=== PATIENT | female | born 1985 | race Caucasian/White ===

== ENCOUNTER 2016-08-24 23:42 | Emergency (ER) | payer OTHER ==
[~2016-08-24] VITALS: Ht 170.2 cm; Wt 63.5 kg
[~2016-08-24 23:42] MED LIST: ALPRAZOLAM1 MG PO; AMOXICILLIN500 M3 PO; AMOXIL 875 MG875 MG PO; AUGMENTIN 500M500 MG PO; AUGMENTIN 875 M1 TAB PO; DICLOFENAC SODI75 M2 PO; DIFLUCAN150 MG PO; DIFLUCAN200 M1 PO; DOXYCYCLINE MO100 MG PO; GABAPENTIN300 MG PO; GUAIFENESIN-COD10 ML PO; HYDROCODONE/ACE1 TA1 PO; MEDROL4 M2 PO; NASONEX17 GM NASB; NORCO 325 MG-51 TAB PO; PENICILLIN V P500 M1 PO; PERCOCET 325 MG1 TA2 PO; PROAIR HFA8.5 GM INH; QUETIAPINE FUM100 MG PO; TYLENOL WITH C1 EACH PO; VICODIN 5-3001 EACH PO; ZITHROMAX250 M2 PO
[2016-08-25 00:02] VITALS: BP 123/72
[2016-08-25] MEDS ORDERED: METHADONE HCL10 M1 PO (00:04)
[2016-08-25 00:25] LABS: ABSOLUTE BASOPHIL COUNT 0.1 /CUMM (0.0-0.2); ABSOLUTE EOSINOPHIL COUNT 0 /CUMM (0.0-0.7); ABSOLUTE GRANULOCYTE CT 7.2 /CUMM (1.4-6.5); ABSOLUTE LYMPH COUNT 2.5 /CUMM (1.2-3.4); ABSOLUTE MONOCYTE COUNT 0.5 /CUMM (0.10-0.60); BASOPHIL % 0.5 % (0.0-2.0); EOSINOPHIL % 0 % (0-5); GRANULOCYTE % 70.2 % (42.2-75.2); HEMATOCRIT 37.9 % (37-47); MEAN CORPUSCULAR HGB 29.1 PG (27.0-31.0); MEAN CORPUSCULAR HGB CONC 33.6 G/DL (33.0-37.0); MEAN CORPUSCULAR VOLUME 86.7 FL (81.0-99.0); MEAN PLATELET VOLUME 8.9 FL (7.4-10.4); PLATELET COUNT 221 /CUMM (130-400); RBC DISTRIBUTION WIDTH 12.4 % (11.5-14.5); RED BLOOD CELL CT 4.37 /CUMM (4.20-5.40); WHITE BLOOD CELL COUNT 10.3 /CUMM (4.8-10.8)
== END 2016-08-25 02:08 | disposition admitted as inpatient to this hospital (09) ==
LOC: ERH 23:42
PROVIDERS: Physician Assistant Medical
DX: R10.30 Lower abdominal pain, unspecified (principal); K59.00 Constipation, unspecified
CPT/HCPCS: 81001; 81025; 99281

== ENCOUNTER 2017-07-17 19:26 | Emergency (ER) | payer OTHER ==
[~2017-07-17] VITALS: Ht 167.6 cm; Wt 61.2 kg
[~2017-07-17 19:26] MED LIST changes: +METHADONE HCL10 M1 PO; +NARCAN4 MG IN
--- NOTE | 2017-07-17 20:34 | ED INFLUENZA/URI COMPLAINT ---
History of Present Illness General Chief Complaint: Upper Respiratory Sx/Fever Stated Complaint: NEEDS BACTERIAL PNEUMONIA?? EVAL S/P FAMILY DX?? Source: patient, family Exam Limitations: no limitations Vital Signs & Intake/Output Vital Signs & Intake/Output Vital Signs Date Time Temp Pulse Resp B/P B/P Pulse O2 O2 Flow FiO2 Mean Ox Delivery Rate 07/17 2126 98.6 67 18 98/59 100 Room Air 07/18 1939 96.6 53 18 112/65 98 Room Air Allergies Coded Allergies: No Known Allergies (08/24/16) Triage Note: PT FROM HOME C/O DRY COUGH, SOB FOR THE PAST 5 DAYS. PT STATES HER SISTER GOT DX WITH BACTERIAL PNEUMONIA AND PT BELIEVES PT IS THE ONE WHO SPREAD IT. PT STATES "WHEN I BLOW MY NOSE ITS GREEN AND IM SOB SOMETIMES, I KNOW IM SICK." PTS 02 98% ONRA , AFEBRILE IN TRIAGE. PT HAS NO OTHER COMPLAINTS Triage Nurses Notes Reviewed? yes : No Patient currently breastfeeds: No HPI: 32F no PMH presenting with 5 days of sinus pressure with green sinus discharge, post-nasal drip symptoms, cough with thick yellow sputum, and chills. Her sister was recently diagnosed with bacterial pneumonia. She is an active 1 PPD smoker. She denies fever, headache, chest pain, palpitations, SOB, abdominal pain, diarrhea, dysuria. She is more fatigued lately and reports intermittent lightheadedness and blurry vision that lasts a few seconds. She is taking PO well. (Trista BARNETT,Shanelle) Reconcile Medications Amoxicillin/Clavulanate Potass (Amox-Clav 875-125 MG Tablet) 875 MG-125 MG TABLET 1 TAB PO BID SINUSITIS Methadone Hydrochloride (Methadone HCl) 10 MG TABLET 1 TAB PO (Reported) Naloxone HCl (Narcan) 4 MG/ACTUATION SPRAY 1 SPRAY IN ONCE PRN OPIATE OD (Trip Garcia) Past History Travel History Traveled to [place] past 21 day No Medical History Any Pertinent Medical History? 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 No (Shanelle Weston MD) Review of Systems Review of Systems Constitutional: Reports: no symptoms. EENTM: Reports: no symptoms. Respiratory: Reports: no symptoms. Cardiovascular: Reports: no symptoms. GI: Reports: no symptoms. Genitourinary: Reports: no symptoms. Musculoskeletal: Reports: no symptoms. Skin: Reports: no symptoms. Neurological/Psychological: Reports: no symptoms. Hematologic/Endocrine: Reports: no symptoms. Immunologic/Allergic: Reports: no symptoms. All Other Systems: Reviewed and Negative (Shanelle Weston MD) Physical Exam Physical Exam General Appearance: well developed/nourished, no apparent distress, appears ill Head: atraumatic, normal appearance Eyes: Bilateral: normal appearance. Ears, Nose, Throat: normal ENT inspection, hearing grossly normal, normal canal and TM bilaterally, mildly erythematous pharynx Neck: normal inspection, supple, full range of motion Respiratory: RLL rhonchi Cardiovascular: regular rate/rhythm Gastrointestinal: soft, non-tender Back: normal inspection, normal range of motion Extremities: normal inspection, normal range of motion Neurologic/Psych: awake, alert, oriented x 3, normal mood/affect Skin: intact, normal color, warm/dry Lymphatic: left anterior cervical lymphadenopathy Core Measures Sepsis Present: No Sepsis Focused Exam Completed? No (Shanelle Weston MD) Progress Differential Diagnosis: influenza, meningitis, neutropenia, otitis, pneumonia, pharyngitis, sinusitis Plan of Care: Orders Procedure Date/time Status THROAT CULTURE W/QUICK STREP 07/17 2033 Active URINE 07/17 2008 Complete Laboratory Tests 07/17/172034: Urine Test NEGATIVE Chest x-ray is negative. Patient be treated for sinusitis with Augmentin. Also advised rest fluids Tylenol ibuprofen Flonase as needed. Discussed return precautions follow-up with the primary care doctor patient agrees the plan (Trip Garcia) Initial ED EKG: none (Shanelle Weston MD) Diagnostic Imaging: Viewed by Me: Radiology Read. Discussed w/RAD: Radiology Read. CXR Impression: PATIENT: KEVIN MADERA PRESENT AGE: 32 PATIENT ACCOUNT NO: [id number] : 84 LOCATION: [facility] ORDERING PHYSICIAN: Shanelle Weston MD SERVICE DATE: 07/17/17 EXAM TYPE: RAD - XRY-CHEST XRAY, TWO VIEWS EXAMINATION: XR CHEST CLINICAL INFORMATION: Cough with right lower lobe rhonchi. COMPARISON: Chest radiograph 11/21/2012. TECHNIQUE: 2 views of the chest were obtained. FINDINGS: The lungs are clear. No pleural effusion. Cardiomediastinal silhouette and pulmonary vasculature are within normal limits. No acute osseous finding. IMPRESSION: No acute cardiopulmonary disease. DICTATED BY: Billy Graves MD DATE/TIME DICTATED:07/17/172140 MANAGER ENT: MERLINE DATE/TIME TRANSCRIBED:07/17/172140 CONFIDENTIAL, DO NOT COPY WITHOUT APPROPRIATE AUTHORIZATION. <Electronically signed in Other Vendor System> SIGNED BY: Billy Graves MD 07/17/172145 (Marcelo WILSON,Trip) Departure Departure Disposition: HOME OR SELF CARE Condition: Stable Clinical Impression Primary Impression: Acute sinusitis Qualifiers: Sinusitis location: maxillary Recurrence: non-recurrent Qualified Code: J01.00 - Acute maxillary sinusitis, unspecified Secondary Impressions: Post-nasal drip Referrals: Sravan Monreal MD (PCP/Family) Additional Instructions: Follow up with your PCP. Stay well hydrated. We encourage you to quit smoking, and you can ask your doctor for help with this. If you notice any new or worsening symptoms, return to ER. Departure Forms: Customer Survey General Discharge Information Prescriptions: Current Visit Scripts Amoxicillin/Clavulanate Potass (Amox-Clav 875-125 MG Tablet) 1 TAB PO BID #20 TAB (Trista BARNETT,Shanelle)
[2017-07-17] MEDS ORDERED: AMOX-CLAV 875-1 EACH PO (20:43)
[2017-07-17 21:27] VITALS: BP 98/59
--- NOTE | 2017-07-17 21:46 | RADIOLOGY REPORT ---
EXAMINATION: XR CHEST CLINICAL INFORMATION: Cough with right lower lobe rhonchi. COMPARISON: Chest radiograph 11/21/2012. TECHNIQUE: 2 views of the chest were obtained. FINDINGS: The lungs are clear. No pleural effusion. Cardiomediastinal silhouette and pulmonary vasculature are within normal limits. No acute osseous finding. IMPRESSION: No acute cardiopulmonary disease.
[2017-07-17] MEDS ORDERED: DIFLUCAN150 M1 PO (22:05)
== END 2017-07-17 22:01 ==
LOC: ERH 19:26
DX: J01.90 Acute sinusitis, unspecified (principal); R09.82 Postnasal drip; R05 Cough; F17.210 Nicotine dependence, cigarettes, uncomplicated
CPT/HCPCS: 71046; 81025